=== PATIENT | male | born 1990 | race Asian ===

== ENCOUNTER 2020-06-21 13:26 | Inpatient (IN) | payer OTHER ==
[~2020-06-21] VITALS: Ht 182.9 cm; Wt 65.8 kg
[2020-06-21] MEDS ORDERED: ZOLPIDEM TARTRATE 10 MG TABLET PO PRN (18:15)
[2020-06-21] MEDS ORDERED: HALOPERIDOL 5 MG TABLET PO PRN (18:15)
[2020-06-21 18:56] VITALS: BP 134/76
[2020-06-21] MEDS: LORazepam 2 MG TABLET PO PRN (20:18)
[2020-06-22 04:54] VITALS: BP 128/74
[2020-06-22 08:13] VITALS: BP 136/82
[2020-06-22 16:22] VITALS: BP 129/60
[2020-06-22] MEDS: RisperiDONE 1 MG TABLET PO SCH (16:41)
[2020-06-23 03:39] VITALS: BP 125/68
[2020-06-23 07:55] LABS: BASOPHILS % (AUTO) 0.7 % (0.0-2.0); HEMATOCRIT 42.7 % (41-53); HEMOGLOBIN 14.5 g/dL (13.5-17.5); LYMPHOCYTES # (AUTO) 1.4 K/uL (1.0-4.8); MEAN CORPUSCULAR HEMOGLOBIN 30.2 pg (26.0-34.0); MEAN CORPUSCULAR HGB CONC 33.9 G/dL (31.0-37.0); MEAN CORPUSCULAR VOLUME 89 fL (80-100); MONOCYTES # (AUTO) 0.3 K/uL (0.1-1.0); NEUTROPHILS # (AUTO) 3.6 K/uL (1.8-7.7); NEUTROPHILS % (AUTO) 66.3 % (40.0-70.0); PLATELET COUNT (AUTO) 240 K/uL (150-450); RED CELL DISTRIBUTION WIDTH 13.2 % (11.5-14.5)
[2020-06-23 08:20] LABS: ALANINE AMINOTRANSFERASE 22 U/L (12-78); ALBUMIN 3.9 g/dL (3.4-5.0); ALKALINE PHOSPHATASE 26 U/L (46-116); ANION GAP 2 mmol/L (8-16); ASPARTATE AMINOTRANSFERASE 13 U/L (15-37); BILIRUBIN,TOTAL 0.4 mg/dL (0.1-1.0); CALCIUM, TOTAL 9.1 mg/dL (8.8-10.5); CARBON DIOXIDE 32 mmol/L (22-29); CHLORIDE 102 mmol/L (98-107); CHOL/HDL RATIO 2.1 (4.2-7.3); CHOLESTEROL 136 mg/dL (131-200); CREATININE 1.05 mg/dL (0.60-1.30); FREE T4 (FREE THYROXINE) 1.11 ng/dL (0.76-1.46); GLOMERULAR FILTR. RATE CALC > 60 mL/min (>60); GLUCOSE,RANDOM 123 mg/dL (70-110); HDL CHOLESTEROL 66 mg/dL (40-60); LDL CHOL (CALC.) 60 mg/dL (0-130); SODIUM SERUM 136 mmol/L (136-145); THYROID STIMULATING HORMONE 1.87 uIU/mL (0.36-3.74); TOTAL PROTEIN, SERUM 7.3 g/dL (6.4-8.2); TRIGLYCERIDES 49 mg/dL (15-150); UREA NITROGEN, BLOOD 13 mg/dL (7-18)
[2020-06-23 08:21] LABS: HEMOGLOBIN A1C 5.8 % (3.8-5.6)
[2020-06-23 08:26] VITALS: BP 115/64
[2020-06-23] MEDS: RisperiDONE 1 MG TABLET PO SCH ×2 (09:23→16:58)
[2020-06-23] MEDS: LORazepam 2 MG TABLET PO PRN (14:41)
[2020-06-23 16:27] VITALS: BP 133/85
[2020-06-24 04:17] VITALS: BP 128/78
[2020-06-24 08:15] VITALS: BP 103/64
[2020-06-24] MEDS: RisperiDONE 1 MG TABLET PO SCH (08:52)
[2020-06-24] MEDS ORDERED: RISP1TAB27 PO (10:22)
== END 2020-06-24 12:29 | disposition home or self-care (01) | DRG 885 ==
LOC: B3A 19:07
PROVIDERS: ADMIT Psychiatry & Neurology Psychiatry; ATTEND Psychiatry & Neurology Psychiatry
DX: F25.9 Schizoaffective disorder, unspecified (principal); F14.90 Cocaine use, unspecified, uncomplicated; F12.90 Cannabis use, unspecified, uncomplicated; F15.90 Other stimulant use, unspecified, uncomplicated
CPT/HCPCS: 80074; 83036; 84439; 84443; 86592